=== PATIENT | male | born 1980 ===

== ENCOUNTER 2020-03-22 12:24 | Outpatient (REF) | payer OTHER, SELFPAY ==
[2020-03-22 19:18] LABS: BUN 10 mg/dL (7-18); CREATININE 0.93 mg/dL (0.70-1.30); Calcium 9.5 mg/dL (8.5-10.1); Calculated LDL 132 mg/dL (<100); Chloride 105 mmol/L (98-107); Cholesterol 208 mg/dL (<200); Glucose 99 mg/dL (74-106); HDL Cholesterol 43 mg/dL (40-60); Potassium 4.5 mmol/L (3.5-5.1); Sodium 140 mmol/L (136-145); Triglyceride 167 mg/dL (<150)
== END 2020-03-22 12:44 ==
LOC: NCHCN 12:24
PROVIDERS: Visit Provider Physician Assistant
DX: I10 Essential (primary) hypertension (principal)
CPT/HCPCS: 80048; 80061

== ENCOUNTER 2022-02-07 14:41 | Outpatient (REF) | payer OTHER, SELFPAY ==
[2022-02-06 20:52] LABS: Anion Gap 10.8 mmol/L (3-11); BUN 14 mg/dL (7-18); CO2 25.2 mmol/L (21.0-32.0); Calculated LDL 123 mg/dL (<100); Chloride 105 mmol/L (98-107); Cholesterol 204 mg/dL (<200); HDL Cholesterol 59 mg/dL (40-60); Potassium 3.9 mmol/L (3.5-5.1); Sodium 141 mmol/L (136-145); Triglyceride 113 mg/dL (<150)
[2022-02-06 20:57] LABS: CREATININE 1.1 mg/dL (0.70-1.30); Calcium 9.4 mg/dL (8.5-10.1); Glucose 74 mg/dL (74-106)
== END 2022-02-07 14:42 | disposition home or self-care (01) ==
LOC: NCHCN 14:41
PROVIDERS: Visit Provider Physician Assistant
DX: I10 Essential (primary) hypertension (principal); E78.5 Hyperlipidemia, unspecified
CPT/HCPCS: 80048; 80061

== ENCOUNTER 2023-01-24 17:03 | Outpatient (REF) | payer OTHER, SELFPAY ==
[2023-01-24 18:30] LABS: ALT 15 U/L (16-63); AST 5 U/L (15-37); Albumin 3.6 g/dL (3.4-5.0); Alkaline Phosphatase 77 U/L (46-116); Anion Gap 9.5 mmol/L (3-11); BUN 12 mg/dL (7-18); Bilirubin, Total 0.2 mg/dL (0.2-1.0); CO2 25.5 mmol/L (21.0-32.0); CREATININE 0.9 mg/dL (0.70-1.30); Calcium 9.2 mg/dL (8.5-10.1); Calculated LDL 82 mg/dL (<100); Chloride 107 mmol/L (98-107); Cholesterol 169 mg/dL (<200); Estimated GFR 108.01 (mL/min/1.73m2); Glucose 118 mg/dL (74-106); HDL Cholesterol 39 mg/dL (40-60); Potassium 4.4 mmol/L (3.5-5.1); Sodium 142 mmol/L (136-145); Total Protein 6.7 g/dL (6.4-8.2); Triglyceride 240 mg/dL (<150)
== END 2023-01-24 17:04 | disposition home or self-care (01) ==
LOC: NCHCN 17:03
PROVIDERS: Visit Provider Physician Assistant
DX: I10 Essential (primary) hypertension (principal)
CPT/HCPCS: 80053; 80061

== ENCOUNTER 2023-01-30 10:08 | Outpatient (REF) | payer OTHER, SELFPAY ==
[2023-01-30 16:04] LABS: Hemoglobin A1C 5.5 % (<5.7)
== END 2023-01-30 10:09 | disposition home or self-care (01) ==
LOC: NCHCN 10:08
PROVIDERS: PCP Physician Assistant; Visit Provider Physician Assistant
DX: R73.9 Hyperglycemia, unspecified (principal)
CPT/HCPCS: 83036

== ENCOUNTER 2023-06-12 15:21 | Outpatient (REF) | payer OTHER, SELFPAY ==
[2023-06-13 10:43] LABS: HIV-1/2 Ag & Ab Screen Negative (Negative)
[2023-06-13 11:19] LABS: Hepatitis C Ab w Rflx HCV PCR Negative (Negative)
[2023-06-13 11:22] LABS: Syphilis Serology (RPR) Negative (Negative)
[2023-06-13 13:35] LABS: Chlamydia Result Negative (Negative); GC Result Negative (Negative)
== END 2023-06-12 15:22 | disposition home or self-care (01) ==
LOC: NCHCN 15:21
PROVIDERS: PCP Physician Assistant; Visit Provider Physician Assistant
DX: Z11.59 Encounter for screening for other viral diseases (principal)
CPT/HCPCS: 86803; 87389; 87491; 87591; 86592

== ENCOUNTER 2024-05-05 10:26 | Day surgery (SDC) | payer OTHER, SELFPAY ==
--- NOTE | 2024-05-04 15:59 | W.PM.DSUDISC ---
Date of service: 05/05/24 Time of Service: 12:05 Discharge Plan Disposition Patient Disposition: Home Condition: Good Discharge Details Reason For Visit: screening colonoscopy Attending Provider: Matias Yu Primary Care Provider: Segundo Shaw Home Meds and New Rx's Prescriptions: Continued valsartan-hydrochlorothiazide 160-12.5 mg tablet 1 tab PO DAILY Discontinued bisacodyl [Dulcolax (bisacodyl)] 5 mg tablet,delayed release (DR/EC) 5 mg PO ONCE Qty: 4 0RF Rx Instructions: Take per colonoscopy instructions provided by ordering providers office polyethylene glycol 3350 17 gram/dose powder 17 g PO ONCE Qty: 238 0RF Rx Instructions: Take per colonoscopy instructions provided by ordering providers office Discharge Instructions Additional Instructions: Leyda, was a pleasure meeting you today and I hope you are comfortable during colonoscopy. Your prep was excellent and I could see everything fine. I did not see any signs of tumors or polyps. With a negative colonoscopy today, you will be good for 10 years. If there are any changes in the interval, recommend you follow-up with your primary care physician further recommendations. If you need anything in the days to come as you are recovering from the procedure have any questions, please do not hesitate to ask 1. If tolerated, consume a soft, low fiber diet for 1-2 days. 2. Do not drive, drink alcohol, operate machinery, make critical decisions, or do activities that require coordination or balance for 24 hours. 3. Because air was put into your colon during the procedure, expelling air from your rectum (passing gas or farting) is normal. 4. You may not have a bowel movement for 1-3 days because of the colonoscopy prep. This is normal. 5. Go directly to the emergency room if you notice any of the following: Develop chills (warm to touch), or if you have a thermometer and your temperature is above 101 Difficulty breathing or difficultly swallowing Persistent vomiting Severe abdominal pain, other than gas cramps Severe chest pain Black, tarry stools Any bleeding ? exceeding one tablespoon 6. Call your physician if the site where your intravenous was started becomes red, swollen, painful, and warm to touch. 7. Your physician has reviewed your pre-procedure medications. Please continue to take those medications as previously ordered. You will be given specific information/education regarding any changes to your medications before leaving. Activity:: Activity as Tolerated Diet:: As Tolerated Discharge Orders Discharge Orders: Discharge Order (Routine); Ordered 05/04/24 Ordered By: Matias Yu DS: Diagnosis Discharge Diagnosis (1) Encounter for screening colonoscopy: Status: Acute Asessment and Plan: Negative screening colonoscopy. 10-year follow-up recommendation
--- NOTE | 2024-05-04 16:00 | W.COLOREPORT ---
Date of service: 05/05/24 Time of Service: 12:06 Colonoscopy Report Date of procedure: 05/05/24 Pre-op diagnosis general: screening colonoscopy Post-op diagnosis procedure note: other (Negative screening colonoscopy) Procedure: colonoscopy Surgeon: Matias Yu Anesthesia Type: General:No Airway Estimated blood loss (mL): 0 Pathology: none sent Complications: None Disposition: same day Indications: Les is a 43 hemant old man who needs a screening colonoscopy Prep: Miralax/Dulcolax Procedure Start Time: 11:48 Procedure End Time: 12:00 Retraction Time: 9 Findings: Negative screening colonoscopy Procedure Description: After the induction of anesthesia, and with the patient in left lateral decubitus position, I began by performing an external anorectal exam.? Perineum and skin were normal, as was the anal verge.? There was no evidence of external hemorrhoids.? Next, I performed a digital rectal exam.? I did not appreciate any abnormal findings.? Next, I advanced a colonoscope into the rectal vault.? I performed retroflexion.? This appeared normal.? Using insufflation, I then advanced the colonoscope beyond the rectal folds and into the sigmoid colon before advancing towards the cecum.? The quality of the prep was excellent.? The scope was noted to be in the cecum by identification of the ileocecal valve and appendiceal orifice.? I then began withdrawing the colonoscope using repeated irrigation as necessary for full evaluation of the colonic mucosa. ?Once the scope was withdrawn to the level of the rectum, great care was taken to examine portions of the rectal folds. I did not see any signs of tumors, polyps, or any other pathology.? Finally, the scope was withdrawn and the patient was brought to the same-day surgery recovery unit as the anesthetic wore off. ?The findings and instructions were shared with the patient prior to discharge. [place] Bowel Prep [place] Bowel Prep Right Colon: 3 Left Colon: 3 Transverse Colon: 3 Total Score: 9
[2024-05-05 10:52] VITALS: BP 137/86; PULSE 71; RESP 18; TEMP 36.3; O2SAT 97
[2024-05-05] MEDS: Lactated Ringers 500 ML 80 ML IV (11:07)
--- NOTE | 2024-05-05 11:08 | W.ANESPRE ---
General Info Date of Service Date Performed: 05/05/24 Height: 5 ft 10 in Weight: 98.3 kg Body Mass Index (BMI): 31.1 Surgical Procedure: Operation Date: 05/05/24 12:05 Proposed Procedure Side Surgeon malik Yu MD Meds Allergies and Home Medications Allergies Allergy/AdvReac Type Severity Reaction Status Date / Time No Known Allergies Allergy Verified 05/05/24 10:51 Home Medication ?Medication ?Instructions ?Recorded valsartan 160 1 tab PO DAILY 02/12/24 mg-hydrochlorothiazide 12.5 mg tablet Current Visit Medications: Current Medications Generic Name Dose Route Start Last Admin Trade Name Freq PRN Reason Stop Dose Admin Ringer's Solution 500 mls @ 80 mls/hr 05/05/24 06:00 IV 05/05/24 23:59 INFUSION MADHURI IV Miscellaneous Supplies 1 each 05/05/24 06:00 Iv Access IV 05/05/24 23:59 DIRECTED MADHURI Ondansetron HCl 4 mg 05/04/24 16:03 Ondansetron 4 Mg/2 Ml Vial IVP 06/03/24 16:02 Q4H PRN PRN Nausea / Vomiting Sodium Chloride 0 ml 05/05/24 06:00 Normal Saline Flush 10 Ml Syr IV 05/05/24 23:59 PRN PRN Sodium Chloride 0 ml 05/05/24 06:00 Normal Saline 10 Ml Vial IJ 05/05/24 23:59 DIRECTED PRN Sterile Water 0 ml 05/05/24 06:00 Water,Injection,Sterile 10 Ml Vial IJ 05/05/24 23:59 DIRECTED PRN PFSH Active Problems Active Problems: Problem Status Onset Code Encounter for screening colonoscopy Acute Z12.11 Essential hypertension Acute I10 ADHD Acute F90.9 Adjustment disorder with mixed anxiety and depressed mood Acute F43.23 Mood disorder Acute F39 Hyperlipidemia Acute E78.5 Surgical History Surgical History (Updated 05/02/24 @ 11:12 by Ernesto Ardon) Hx of hernia repair in 4th grade Tobacco Smoking/Tobacco Use Status: Never Alcohol Alcohol Intake: current Alcohol intake frequency: 0-2 drinks per day Alcohol type: beer and hard liquor Substance Use Substance use: Rarely Substance use type: marijuana Vital Signs and Lab Results Vital Signs Most Recent Vital Signs in EMR: Most Recent Vital Signs Temp Pulse Resp BP Pulse Ox 36.3 C L 71 18 137/86 97 10/28/24 10:52 05/05/24 10:52 05/05/24 10:52 05/05/24 10:52 05/05/24 10:52 Lab Results Blood Type / Crossmatch: No Data to Display Complete Blood Count: No Data to Display Complete Metabolic Panel: No Data to Display Liver Function Panel: No Data to Display Coagulation Panel: No Data to Display Cardiac Panel: No Data to Display Arterial Blood Gas: No Data to Display Venous Blood Gas: No Data to Display Pancreas Panel: No Data to Display Thyroid Panel: No Data to Display Infectious Disease: No Data to Display Blood Cultures: No Data to Display Toxicology Panel: No Data to Display Anesthesia Assessment and Plan Anesthesia History Personal History: No History of Anesthesia Complications Family History: No Family History of Anesthesia Complications Exercise Tolerance Exercise Tolerance: Metabolic Equivalents>4 Pertinent Negatives Pertinent Negatives: No Symptoms of GERD, No Major Cardiovascular Symptoms or Complaints, No Major Pulmonary Symptoms or Complaints and No History of CVA/TIA Cardiac & Pulmonary Exam Cardiac Exam: Normal S1/S2 Heart Sounds Pulmonary Exam: Clear Bilateral Breath Sounds Implantable Cardiac Device Does patient have a Pacemaker or an ICD?: No Airway Exam Known Difficult Airway: No Mallampati Class: 2 Mouth Opening: Normal (> 3cm) Thyromental Distance: Greater than 3 cm Neck Range of Motion: Full ROM Neck Circumference: Normal Teeth Condition: Normal Dentition and Removable Dentures/Plates Upper (2 tooth partial) ASA Classification ASA Score: ASA 2 Emergency Case?: No NPO Status NPO Status: NPO Clears >2 hours, Solids >8 hours Anesthesia Plan Resuscitation Status: Full Code Anesthesia Technique: General Anesthesia Airway Planned: Natural Airway Monitors Used: Standard Monitors
[2024-05-05 11:32] VITALS: BMI 31.1
[2024-05-05 12:08] VITALS: PULSE 65; RESP 16; TEMP 36; O2SAT 97
[2024-05-05 12:40] VITALS: BP 115/72; PULSE 64; RESP 16; TEMP 36.4; O2SAT 97
--- NOTE | 2024-05-05 12:44 | W.ANESPOSTOP ---
Postoperative Evaluation Date, Time and Location Date Performed: 05/05/24 Time Performed: 12:44 Patient Location: Day Surgery Unit Vital Signs Most Recent Imported Vital Signs: Most Recent Vital Signs Temp Pulse Resp BP Pulse Ox 36.4 C L 64 16 115/72 97 05/05/24 12:40 05/05/24 12:40 05/05/24 12:40 05/05/24 12:40 05/05/24 12:40 Pain Score Most Recent Pain Score: Most Recent Pain Score Pain Level 0 05/05/24 12:40 Assessment Mental Status: Awake (Alert & Oriented to Patient Baseline) Airway and Respiratory Function: Patent airway with normal (patient baseline) respiratory exam Cardiovascular Function: Hemodynamically Stable Hydration Status: Adequately Hydrated Nausea & Vomiting: No Nausea or Vomiting Pain: Pt. Denies Any Pain Peripheral Nerve Block: Patient did not receive a nerve block
== END 2024-05-05 13:00 | disposition home or self-care (01) ==
LOC: SUR 10:27
PROVIDERS: PCP Physician Assistant; Visit Provider Surgery
PROC: 0DJD8ZZ Inspection of Lower Intestinal Tract, Via Natural or Artificial Opening Endoscopic (ICD-10-PCS; CPT 45378; principal; 2024-05-05 12:00)
DX: Z12.11 Encounter for screening for malignant neoplasm of colon (principal); I10 Essential (primary) hypertension
CPT/HCPCS: 45378; J2405; J2704

== ENCOUNTER 2024-10-27 16:00 | Outpatient (REF) | payer OTHER, SELFPAY ==
[2024-10-27 21:55] LABS: Anion Gap 10.1 mmol/L (3-11); BUN 16 mg/dL (7-18); CO2 25.9 mmol/L (21.0-32.0); CREATININE 0.9 mg/dL (0.70-1.30); Calcium 9.9 mg/dL (8.5-10.1); Calculated LDL 115 mg/dL (<100); Chloride 105 mmol/L (98-107); Cholesterol 206 mg/dL (<200); Estimated GFR 106.67 (mL/min/1.73m2); Glucose 92 mg/dL (74-106); HDL Cholesterol 56 mg/dL (>or=40); Potassium 4.1 mmol/L (3.5-5.1); Sodium 141 mmol/L (136-145); Triglyceride 175 mg/dL (<150)
[2024-10-27 22:06] LABS: Hemoglobin A1C 5.4 % (<5.7)
[2024-10-29 10:04] LABS: HIV-1/2 Ag & Ab Screen Negative (Negative)
[2024-10-29 10:55] LABS: Hepatitis C Ab w Rflx HCV PCR Negative (Negative)
[2024-10-29 12:08] LABS: Syphilis Serology (RPR) Negative (Negative)
[2024-10-29 13:06] LABS: Chlamydia Result Negative (Negative); GC Result Negative (Negative)
== END 2024-10-27 16:01 | disposition home or self-care (01) ==
LOC: NCHCN 16:00
PROVIDERS: PCP Physician Assistant; Visit Provider Physician Assistant
DX: Z11.3 Encounter for screening for infections with a predominantly sexual mode of transmission (principal); E78.5 Hyperlipidemia, unspecified; Z13.1 Encounter for screening for diabetes mellitus
CPT/HCPCS: 80048; 80061; 86803; 87389; 87491; 87591; 83036; 86592